=== PATIENT | female | born 2000 | race African-American/Black ===

== ENCOUNTER 2021-12-04 11:33 | Emergency (ER) | payer OTHER ==
[2021-12-04 11:59] LABS: #Basophils 0.1 10x3/uL (0.0-0.2); #Eosinphils 0.3 10x3/uL (0.0-0.5); #Monocytes 0.6 10x3/uL (0.0-1.1); #Neutrophils 6.2 10x3/uL (1.5-8.4); %Basophils 0.6 % (0.0-2.0); %Eosinophils 3.1 % (0.0-6.0); %Lymphocytes 32.7 % (18.0-47.0); %Monocytes 5.6 % (0.0-10.0); %Neutrophils 57.7 % (40.0-75.0); Hemoglobin 11.7 g/dL (12.0-15.5); Mean Corpuscular HGB CONC 33.4 g/dL (32.0-36.0); Mean Corpuscular Hemoglobin 29.8 pg (27.0-33.0); Mean Corpuscular Volume 89.3 fl (81.6-98.3); Mean Platelet Volume 10.3 fl (7.4-10.4); Platelet Count 295 10x3/uL (150-450); RBC Distribution Width 13.2 % (11.5-14.5); Red Blood Cell (RBC) Count 3.92 10x6/uL (3.90-5.03); White Blood Cell (WBC) Count 10.8 10x3/uL (3.5-10.5)
[2021-12-04 12:12] LABS: ALT (SGPT) 24 U/L (8-55); AST (SGOT) 16 U/L (5-34); Alkaline Phosphatase 61 U/L (40-110); Anion Gap 12 mmol/L (10-20); BUN (Urea Nitrogen) 6 mg/dL (7.0-18.7); Bilirubin, Total 0.5 mg/dL (0.2-1.2); Calc. Creatinine Clearance 0 mL/min (70-130); Calcium 9.2 mg/dL (7.8-10.44); Carbon Dioxide 21 mmol/L (22-29); Chloride 104 mmol/L (98-107); Estimated GFR 117; Globulin 3.6 g/dL (2.4-3.5); Glucose 115 mg/dL (70-105); Potassium 3.9 mmol/L (3.5-5.1); Protein, Total 7.6 g/dL (6.0-8.3); Sodium 133 mmol/L (136-145)
[2021-12-04 12:19] LABS: Bilirubin Neg (Negative); Blood, Urine 10 (Negative); Clarity Slightly Cloudy (Clear); Glucose, Urine (Dipstick) Normal (Negative); Ketone, Urine Negative (Negative); Leukocyte 500 (Negative); Nitrite Negative (Negative); Protein, Urine (Dipstick) 15 mg/dl (Neg-Trace); Specific Gravity, Urine 1.015 (1.002-1.036); Urobilinogen Normal mg/dL (Less than 2)
[2021-12-04 12:35] LABS: Bacteria/HPF 1+ HPF (None Seen); Mucous/LPF 1+ LPF (<2+)
== END 2021-12-04 14:38 | disposition home or self-care (01) ==
LOC: CSHERS 11:33
DX: O20.0 Threatened abortion (principal); O21.9 Vomiting of pregnancy, unspecified; Z3A.08 8 weeks gestation of pregnancy
CPT/HCPCS: 36415; 76856; 80053; 81003; 81015; 84702; 85025; 86900; 86901

== ENCOUNTER 2023-05-06 18:31 | Emergency (ER) | payer OTHER ==
[2023-05-06] MEDS ORDERED: cefTRIAXone (ROCEPHIN) 500 MG VIAL ONE (19:18)
[2023-05-06] MEDS ORDERED: Lidocaine 1% MPF 2 ML VIAL ONE (19:18)
[2023-05-06 19:21] LABS: Bilirubin Neg (Negative); Blood, Urine Negative (Negative); Clarity Slightly Cloudy (Clear); Glucose, Urine (Dipstick) Normal (Negative); Ketone, Urine Negative (Negative); Leukocyte 500 (Negative); Nitrite Negative (Negative); Protein, Urine (Dipstick) 15 mg/dl (Neg-Trace)
[2023-05-06 19:46] LABS: CAUTI Indications for Culture Dysuria,urgency,freq; RBC/HPF None Seen HPF (0-3)
[2023-05-06 19:47] LABS: Bacteria/HPF 1+ HPF (None Seen); Trichomonas/HPF 1+ HPF (None Seen)
[2023-05-06 19:49] LABS: Urine Culture Reflex Yes Yes
[2023-05-07 14:15] LABS: Chlamydia by PCR, Vaginal Swab Not Detected (NotDetected); GC by PCR, Vaginal Swab Not Detected (NotDetected)
== END 2023-05-06 21:50 | disposition left against medical advice (07) ==
LOC: CSHERS 18:31
DX: Z20.2 Contact with and (suspected) exposure to infections with a predominantly sexual mode of transmission (principal)
CPT/HCPCS: 81001; 87086; 87480; 87491; 87510; 87591; 87660; J0696

== ENCOUNTER 2023-10-10 07:18 | Emergency (ER) | payer OTHER ==
[2023-10-10] MEDS ORDERED: Acetaminophen 500 MG TAB ONE (07:51)
== END 2023-10-10 08:10 | disposition home or self-care (01) ==
LOC: CSHERS 07:18
DX: M25.562 Pain in left knee (principal); I10 Essential (primary) hypertension; Z55.6 Problems related to health literacy

== ENCOUNTER 2023-11-26 15:27 | Emergency (ER) | payer OTHER ==
[2023-11-26] MEDS ORDERED: Aspirin Chewable 81 MG TAB ONE (15:55)
[2023-11-26] MEDS ORDERED: Ondansetron PF 4 MG/2 ML Vial ONE (15:55)
[2023-11-26 15:59] LABS: #Basophils 0.08 10x3/uL (0.0-0.2); #Monocytes 0.63 10x3/uL (0.0-1.1); #Neutrophils 4.85 10x3/uL (1.5-8.4); %Basophils 0.8 % (0.0-2.0); %Lymphocytes 38.2 % (18.0-47.0); %Monocytes 6.3 % (0.0-10.0); %Neutrophils 48.5 % (40.0-75.0); Hematocrit 39.4 % (34.9-44.5); Hemoglobin 13.7 g/dL (12.0-15.5); Mean Corpuscular HGB CONC 34.8 g/dL (32.0-36.0); Mean Corpuscular Hemoglobin 32.4 pg (27.0-33.0); Mean Corpuscular Volume 93.1 fL (81.6-98.3); Mean Platelet Volume 10.5 fL (7.4-10.4); Platelet Count 281 10x3/uL (150-450); RBC Distribution Width 11.9 % (11.5-14.5); Red Blood Cell (RBC) Count 4.23 10x6/uL (3.90-5.03)
[2023-11-26 16:07] LABS: BHCG - Serum Negative (NEGATIVE); Pregs Control Background? CLEAR/WHITE (CLR/WHITE); Pregs Control Bar Appear? YES (CONTROL BAR)
[2023-11-26 16:14] LABS: ALT (SGPT) 60 U/L (8-55); AST (SGOT) 37 U/L (5-34); Albumin 3.6 g/dL (3.5-5.0); Alkaline Phosphatase 64 U/L (40-110); Anion Gap 11 mmol/L (10-20); BUN (Urea Nitrogen) 9 mg/dL (7.0-18.7); Bilirubin, Total 0.3 mg/dL (0.2-1.2); Calc. Creatinine Clearance 0 mL/min (70-130); Calcium 9.3 mg/dL (7.8-10.44); Carbon Dioxide 24 mmol/L (22-29); Chloride 107 mmol/L (98-107); Estimated GFR 103; Globulin 3.5 g/dL (2.4-3.5); Glucose 114 mg/dL (70-105); Lipase 23 U/L (8-78); Potassium 3.9 mmol/L (3.5-5.1); Protein, Total 7.1 g/dL (6.0-8.3); Sodium 138 mmol/L (136-145)
[2023-11-26 16:20] LABS: Troponin I Less than 0.010 ng/mL (< 0.028)
[2023-11-26] MEDS ORDERED: Ketorolac Tromethamine 30 MG (1 mL) VIAL ONE (17:46)
== END 2023-11-26 18:44 | disposition home or self-care (01) ==
LOC: CSHERS 15:27 → EDBD 15:27 → CSHERS 18:44
DX: R11.2 Nausea with vomiting, unspecified (principal); R10.84 Generalized abdominal pain; R55 Syncope and collapse
CPT/HCPCS: 70450; 71045; 71275; 74177; 80053; 83605; 83690; 83880; 84484; 84703; 85025; 85379; 93005; 96361; 96374; 96375; J1885; J2405

== ENCOUNTER 2024-04-01 11:49 | Emergency (ER) | payer SELFPAY ==
[2024-04-01] MEDS ORDERED: Diazepam 5 MG TAB ONE (12:20)
[2024-04-01] MEDS ORDERED: Lidocaine 1% w/Epinephrine 1:200K 30 ML VIAL ONE (12:21)
== END 2024-04-01 13:58 | disposition home or self-care (01) ==
LOC: CSHERS 11:49
DX: L02.31 Cutaneous abscess of buttock (principal)
CPT/HCPCS: 10060

== ENCOUNTER 2024-05-22 21:38 | Emergency (ER) | payer OTHER ==
[2024-05-22] MEDS ORDERED: Ibuprofen 200 MG TAB ONE (22:06)
== END 2024-05-22 22:45 | disposition home or self-care (01) ==
LOC: CSHERS 21:38
DX: S93.602A Unspecified sprain of left foot, initial encounter (principal); X50.1XXA Overexertion from prolonged static or awkward postures, initial encounter; Y93.01 Activity, walking, marching and hiking
CPT/HCPCS: 99283

== ENCOUNTER 2024-06-05 11:01 | Emergency (ER) | payer OTHER, SELFPAY | END 2024-06-05 11:56 | disposition left against medical advice (07) | LOC: CSHERS 11:01 | DX: N89.8 Other specified noninflammatory disorders of vagina (principal) | CPT/HCPCS: 99283 ==

== ENCOUNTER 2024-12-21 08:08 | Emergency (ER) | payer SELFPAY ==
[2024-12-21] MEDS ORDERED: Acetaminophen 500 MG TAB ONE (08:37)
== END 2024-12-21 10:29 | disposition home or self-care (01) ==
LOC: CSHERS 08:08
DX: J02.9 Acute pharyngitis, unspecified (principal); E11.9 Type 2 diabetes mellitus without complications; Z79.84 Long term (current) use of oral hypoglycemic drugs
CPT/HCPCS: 87081; 87428; 87430; 99283

== ENCOUNTER 2025-03-01 13:53 | Emergency (ER) | payer SELFPAY ==
[2025-03-01 15:08] LABS: Glucose, Urine (Dipstick) >=1000 mg/dL (Negative); Leukocyte Negative (Negative); Pregnancy Test - Urine (BHCG) Negative (Negative); Pregu Control Background? CLEAR/WHITE (CLR/WHITE); Pregu Control Bar Appear? YES (CONTROL BAR); Protein, Urine (Dipstick) Negative (Neg-Trace); Specific Gravity, Urine 1.010 (1.005-1.030)
[2025-03-01 15:30] LABS: CAUTI Indications for Culture Pelvic or flank pain; RBC/HPF 0-3 HPF (0-3); WBC/HPF 0-3 HPF (0-3)
[2025-03-01 15:31] LABS: Bacteria/HPF 2+ HPF (None Seen); Mucous/LPF 1+ LPF (<2+)
[2025-03-01 15:32] LABS: Urine Culture Reflex No No
[2025-03-01 16:11] LABS: ALT (SGPT) 110 U/L (Less than 34); AST (SGOT) 88 U/L (11-34); Albumin 3.6 g/dL (3.1-4.5); Alkaline Phosphatase 95 U/L (40-110); Anion Gap 12 mmol/L (10-20); BUN (Urea Nitrogen) 8 mg/dL (7.0-18.7); Bilirubin, Total 0.3 mg/dL (0.3-1.2); Calc. Creatinine Clearance 0 mL/min (70-130); Calcium 9.3 mg/dL (7.8-10.44); Carbon Dioxide 26 mmol/L (22-29); Chloride 99 mmol/L (98-107); Globulin 4.1 g/dL (2.4-3.5); Potassium 3.9 mmol/L (3.5-5.1); Sodium 133 mmol/L (136-145)
[2025-03-01 16:18] LABS: Glucose 451 mg/dL (70-105)
[2025-03-01] MEDS ORDERED: cefTRIAXone (ROCEPHIN) 500 MG VIAL ONE (16:34)
[2025-03-01 23:54] LABS: Chlamydia by PCR, Vaginal Swab DETECTED (NotDetected); GC by PCR, Vaginal Swab Not Detected (NotDetected)
== END 2025-03-01 16:44 | disposition home or self-care (01) ==
LOC: CSHERS 13:53
DX: N76.0 Acute vaginitis (principal); B96.89 Other specified bacterial agents as the cause of diseases classified elsewhere; A59.01 Trichomonal vulvovaginitis; E11.65 Type 2 diabetes mellitus with hyperglycemia; T38.3X6A Underdosing of insulin and oral hypoglycemic [antidiabetic] drugs, initial encounter; Z20.2 Contact with and (suspected) exposure to infections with a predominantly sexual mode of transmission
CPT/HCPCS: 36415; 36416; 80053; 81001; 81025; 87480; 87491; 87510; 87591; 87660; 96372; 99283; J0696